=== PATIENT | male | born 1955 ===

== ENCOUNTER 2021-04-05 15:21 | Emergency (ER) | payer MEDICARE ==
[~2021-04-05] VITALS: Ht 170.2 cm; Wt 90.0 kg
[2021-04-05 15:35] VITALS: BP 130/71
== END 2021-04-05 20:17 | disposition left against medical advice (07) ==
LOC: ER 15:22
DX: Z76.0 Encounter for issue of repeat prescription (principal); Z53.21 Procedure and treatment not carried out due to patient leaving prior to being seen by health care provider